=== PATIENT | male | born 1970 | race African-American/Black ===

== ENCOUNTER 2016-06-30 10:46 | Emergency (ER) | payer SELFPAY ==
[~2016-06-30 10:46] MED LIST: AMOX500C PO; HYDR-2678 PO; HYDR15SO4 PO
[2016-06-30 11:32] VITALS: BP 121/69
[2016-06-30] MEDS ORDERED: DIPHTH,PERTUSS(ACELL),TET TOX 0.5 ML DISP.SYRIN. VAX IM ONE (11:45)
[2016-06-30] MEDS ORDERED: HYDROCODONE/APAP 5/325MG TABLET. PO ONE (11:45)
--- NOTE | 2016-06-30 12:18 | RAD ---
Three-view study of the right hand Indications: Laceration injury 3 days ago. Persistent pain. Findings: No acute fracture or dislocation or osteolytic process is seen. Small loose body or accessory ossicle is seen just medial to the fifth metacarpal phalangeal joint. IMPRESSION: No acute fracture.
[2016-06-30] MEDS ORDERED: TRAM-29 PO (12:43)
--- NOTE | 2016-06-30 12:44 | PHYS DOC ---
Past Medical History Past Medical History: Asthma Past Surgical History: No Surgical History Alcohol Use: Occasionally Drug Use: None Adult General Chief Complaint Chief Complaint: HAND PROBLEM HPI HPI Patient is a 45 year old male who presents with mild right hand pain specifically fourth and fifth knuckles after a 17 inch old school TV fell on his right hand 3 days ago. Review of Systems Review of Systems Constitutional: Denies fever or chills [] Musculoskeletal: Right hand pain Integument: Denies rash or skin lesions [] Neurologic: Denies headache, focal weakness or sensory changes [] Endocrine: Denies polyuria or polydipsia [] Current Medications Current Medications Current Medications Medications (Trade) Dose Ordered Sig/Cyndi Start Time Stop Time Status Last Admin Dose Admin Acetaminophen/ Hydrocodone Bitart (Lortab 5/325) 2 tab 1X ONCE 06/30/16 11:45 06/30/16 11:46 DC 06/30/16 12:26 2 TAB Diphtheria/ Tetanus/Acell Pertussis (Boostrix) 0.5 ml ONCE ONCE 06/30/16 11:45 06/30/16 11:46 DC 06/30/16 12:27 0.5 ML Allergies Allergies Allergies Coded Allergies Type Severity Reaction Last Updated Verified No Known Drug Allergies 01/24/16 No Physical Exam Physical Exam Constitutional: Well developed, well nourished, no acute distress, non-toxic appearance. [] Skin: Warm, dry, no erythema, no rash. [] Back: No tenderness, no CVA tenderness. [] Extremities: Right hand with bruising on the fourth knuckle. Tenderness on palpation of the right hand fourth and fifth to lower cause. Limited range of motion to the right hand ring finger and pinky finger. Full range of motion to the rest of the fingers. Adequate ulna medial and radial sensation to the right hand. +2 right radial pulse. Cap refill less than 2 seconds the right upper extremity. Sensation intact to the right upper extremity. Neurologic: Alert and oriented X 3, normal motor function, normal sensory function, no focal deficits noted. [] Psychologic: Affect normal, judgement normal, mood normal. [] Current Patient Data Vital Signs Vital Signs Date Time Temp Pulse Resp B/P Pulse Ox O2 Delivery O2 Flow Rate FiO2 06/30/16 12:26 20 06/30/16 11:32 97.8 62 97 Room Air 97.8 EKG EKG [] Radiology/Procedures Radiology/Procedures [] Course & Med Decision Making Course & Med Decision Making Pertinent Labs and Imaging studies reviewed. (See chart for details) Patient is in the ED with right hand pain after a TV fell on his right hand 3 days ago. Right hand x-rays interpreted by radiologist are negative for any acute findings. Patient was given tetanus in the ED. Devon wrap was applied to the right thumb by the audio visual technician, neurovascular exam done by me post-Devon wrap application is normal. Ice elevation encouraged. Prescription for Ultram given to him for pain. Follow-up with PCP orthopedic doctor in a week if pain continues. Dragon Disclaimer Dragon Disclaimer This electronic medical record was generated, in whole or in part, using a voice recognition dictation system. Departure Departure Impression: Primary Impression: Contusion of hand, right Additional Impression: Bruising Disposition: 01 HOME, SELF-CARE Condition: STABLE Referrals: NO PCP (PCP) LANETTE YEAGER MD see her in one week if pain continues Patient Instructions: Contusion Additional Instructions: You have right hand contusion. Please keep it iced and elevated. Take pain medicines as needed. Follow up with your doctor or the provided doctor in one week Scripts Tramadol Hcl (Ultram)50 Mg Tablet1 Tab PO Q6HRS #30 TAB Prov:ALFONSO AUSTIN APRN 06/30/16 Problem Qualifiers ALFONSO AUSTIN APRN Jun 30, 2016 12:44
== END 2016-06-30 12:53 | disposition home or self-care (01) ==
LOC: ER 10:46
DX: S60.221A Contusion of right hand, initial encounter (principal); J45.909 Unspecified asthma, uncomplicated; W20.8XXA Other cause of strike by thrown, projected or falling object, initial encounter; Y93.89 Activity, other specified; Y92.89 Other specified places as the place of occurrence of the external cause; Y99.8 Other external cause status
CPT/HCPCS: 73130; 90471; 90715; 99284-25

== ENCOUNTER 2016-09-03 12:35 | Emergency (ER) | payer SELFPAY ==
[~2016-09-03] VITALS: Ht 188 cm; Wt 70.3 kg
[~2016-09-03 12:35] MED LIST changes: +TRAM-29 PO
--- NOTE | 2016-09-03 13:40 | PHYS DOC ---
Past Medical History Past Medical History: Asthma Past Surgical History: No Surgical History Alcohol Use: Occasionally Drug Use: None Adult General Chief Complaint Chief Complaint: ACCIDENTAL INGESTION HPI HPI Patient is a 45 year old male who presents with complaint of exposure to ethylene glycol approximately 30-45 minutes prior to arrival. 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 Patient states that the radiator hose came loose and splashed radiator fluid in his face. Patient states that it got into his nose and mouth. Patient estimates the amount that got into the back of his throat to be approximately a tablespoon. Patient states that he coughed most of this up as it entered his throat. Patient confirm that the radiator fluid was a 50% ethylene glycol solution. Patient states that he has had mild nausea but has not had any vomiting and does not feel intoxicated. Patient states that he does feel mildly dizzy. The patient called poison control and was directed to come to the emergency department for evaluation. Patient denies any significant past medical history. Patient denies any abdominal pain, shortness of breath, or vomiting currently. Review of Systems Review of Systems Constitutional: Lightheadedness, Denies fever or chills [] Eyes: Denies change in visual acuity, redness, or eye pain [] HENT: Denies nasal congestion or sore throat [] Respiratory: Denies cough or shortness of breath [] Cardiovascular: Denies chest pain or edema [] GI: Nausea, denies abdominal pain, vomiting, bloody stools or diarrhea [] : Denies dysuria or hematuria [] Musculoskeletal: Denies back pain or joint pain [] Integument: Denies rash or skin lesions [] Neurologic: Denies headache, focal weakness or sensory changes [] Current Medications Current Medications Current Medications Medications (Trade) Dose Ordered Sig/Cyndi Start Time Stop Time Status Last Admin Dose Admin Ondansetron HCl (Zofran Odt) 4 mg 1X ONCE 09/03/16 13:45 09/03/16 13:46 DC 09/03/16 13:51 4 MG Allergies Allergies Allergies Coded Allergies Type Severity Reaction Last Updated Verified No Known Drug Allergies 01/24/16 No Physical Exam Physical Exam Constitutional: Well developed, well nourished, no acute distress, non-toxic appearance. [] HENT: Normocephalic, atraumatic, bilateral external ears normal, oropharynx moist, no oral exudates, nose normal. [] Eyes: PERRLA, EOMI, conjunctiva normal, no discharge. [] Neck: Normal range of motion, no tenderness, supple, no stridor. [] Cardiovascular:Heart rate regular rhythm, no murmur [] Lungs & Thorax: Bilateral breath sounds clear to auscultation [] Abdomen: Bowel sounds normal, soft, no tenderness, no masses, no pulsatile masses. [] Skin: Warm, dry, no erythema, no rash. [] Back: No tenderness, no CVA tenderness. [] Extremities: No tenderness, no cyanosis, no clubbing, ROM intact, no edema. [] Neurologic: Alert and oriented X 3, normal motor function, normal sensory function, no focal deficits noted. [] Psychologic: Affect normal, judgement normal, mood normal. [] Current Patient Data Vital Signs Vital Signs Date Time Temp Pulse Resp B/P Pulse Ox O2 Delivery O2 Flow Rate FiO2 09/03/16 12:42 98.2 74 18 124/70 98 Room Air 98.2 Lab Values Laboratory Tests Test 09/03/16 13:40 Sodium Level 143mmol/L (136-145) Potassium Level 4.9mmol/L (3.5-5.1) Chloride Level 107mmol/L (98-107) Carbon Dioxide Level 29mmol/L (21-32) Anion Gap 7 (6-14) Blood Urea Nitrogen 17mg/dL (8-26) Creatinine 1.0mg/dL (0.7-1.3) Estimated GFR (Cockcroft-Gault) 96.9 BUN/Creatinine Ratio 17 (6-20) Glucose Level 96mg/dL (70-99) Serum Osmolality 289mOsm/Kg (279-304) Calcium Level 9.3mg/dL (8.5-10.1) Magnesium Level 2.0mg/dL (1.8-2.4) Total Bilirubin 0.5mg/dL (0.2-1.0) Aspartate Amino Transferase (AST) 31U/L (15-37) Alanine Aminotransferase (ALT) 33U/L (16-63) Alkaline Phosphatase 36U/L (46-116) L Total Protein 6.4g/dL (6.4-8.2) Albumin 3.4g/dL (3.4-5.0) Albumin/Globulin Ratio 1.1 (1.0-1.7) Laboratory Tests 09/03/16 13:40 EKG EKG Not performed [] Radiology/Procedures Radiology/Procedures Not performed [] Course & Med Decision Making Course & Med Decision Making Pertinent Labs and Imaging studies reviewed. (See chart for details) After interviewing the patient, it is determined that the patient's actual ingestion of ethylene glycol is minimal. I spoke with Yari of poison control who consult with the change management lead. After discussing all points of the case, Dr. Cifuentes, change management lead, stated that the patient would not need any further lab testing or observation in the emergency department. The patient's metabolic panel was unremarkable. The patient was given Zofran to help with symptoms. Advised that the patient go home and continue with hydration and normal meal intake. Advised return emergency department for any worsening symptoms. Patient voiced understanding and in agreement with treatment plan. [] Dragon Disclaimer Dragon Disclaimer This electronic medical record was generated, in whole or in part, using a voice recognition dictation system. Departure Departure Impression: Primary Impression: Accidental ingestion of substance Disposition: 01 HOME, SELF-CARE Condition: GOOD Referrals: NO PCP (PCP) Patient Instructions: Nontoxic Ingestion Additional Instructions: Follow-up with your primary doctor in 1 week as needed. Return to the emergency department for any worsening symptoms. Problem Qualifiers Primary Impression: Accidental ingestion of substance Encounter type: initial encounter Injury intent: accidental or unintentional Qualified Code: T65.91XA - Toxic effect of unspecified substance , accidental (unintentional), initial encounter RADHA XIONG MD Sep 03, 2016 13:40
[2016-09-03] MEDS ORDERED: ONDANSETRON ODT 4 MG TAB.RAPDIS PO ONE (13:45)
[2016-09-03 14:04] LABS: CALCIUM 9.3 mg/dL (8.5-10.1); GFR 96.9; POTASSIUM 4.9 mmol/L (3.5-5.1)
[2016-09-03 14:08] LABS: ALBUMIN 3.4 g/dL (3.4-5.0); ALBUMIN/GLOBULIN RATIO 1.1 (1.0-1.7); TOTAL BILIRUBIN 0.5 mg/dL (0.2-1.0); TOTAL PROTEIN 6.4 g/dL (6.4-8.2)
[2016-09-03 15:02] VITALS: BP 118/72
== END 2016-09-03 15:01 | disposition home or self-care (01) ==
LOC: ER 12:35
DX: T52.3X1A Toxic effect of glycols, accidental (unintentional), initial encounter (principal); J45.909 Unspecified asthma, uncomplicated; Y92.89 Other specified places as the place of occurrence of the external cause
CPT/HCPCS: 36415; 80053; 83735; 83930; 99284; Q0162

== ENCOUNTER 2017-05-30 20:03 | Emergency (ER) | payer SELFPAY ==
[~2017-05-30] VITALS: Ht 188 cm; Wt 70.3 kg
[~2017-05-30 20:03] MED LIST changes: -TRAM-29 PO; +TRAM-48 PO
[2017-05-30] MEDS: IV NORMAL SALINE 1000ML BAG 1,000 ML IV SCH (20:44)
[2017-05-30] MEDS: KETOROLAC 30 MG/ML INJ. IV ONE (20:44)
[2017-05-30] MEDS: ONDANSETRON PF 4 MG/2 ML VIAL. IV ONE (20:45)
[2017-05-30 20:46] LABS: BASO % 1 % (0-3); EOS % 0 % (0-3); HEMATOCRIT 45.3 % (39.0-53.0); HEMOGLOBIN 15.1 g/dL (13.0-17.5); LYMPH % 26 % (24-48); MEAN CORPUSCULAR HEMOGLOBIN 31 pg (25-35); MEAN CORPUSCULAR HGB CONC 33 g/dL (31-37); MEAN CORPUSCULAR VOLUME 93 fL (79-100); MONO % 10 % (0-9); NEUT % 63 % (31-73); PLATELET COUNT 283 x10^3/uL (140-400); RED BLOOD COUNT 4.88 x10^6/uL (4.30-5.70); RED CELL DISTRIBUTION WIDTH 14.8 % (11.5-14.5); WHITE BLOOD COUNT 7.7 x10^3/uL (4.0-11.0)
--- NOTE | 2017-05-30 20:47 | ED.ADGEN ---
Past Medical History Past Medical History: Asthma Past Surgical History: No Surgical History Alcohol Use: None Drug Use: None Adult General Chief Complaint Chief Complaint: ABDOMINAL PAIN HPI HPI Patient is a 46 year old man, history of asthma, who presents emergency department with a complaint of nausea, vomiting, diarrhea and abdominal pain that began around 3:00 in the morning. Patient states that he last ate dinner without issue, and then woke up early in the morning with multiple episodes of nausea, vomiting, and loose brown stool. Denies any blood or bile in his emesis , no blood in stool. He states that he is experiencing abdominal cramping in the epigastric region, states he is feeling nauseous currently, and has had 3 episodes of emesis over the past several hours, with multiple sodas of loose stool. Patient is not taking any medications prior to coming to the ED, without taking any medications regular basis. He denies any weakness, numbness or tingling, any swelling of the extremities, any rashes. Patient states he works at [employer] and was sent home from work today due to illness. Review of Systems Review of Systems Constitutional: Denies fever or chills. [] Eyes: Denies change in visual acuity. [] HENT: Denies nasal congestion or sore throat. [] Respiratory: Denies cough or shortness of breath. [] Cardiovascular: Denies chest pain or edema. [] GI: Complaining of epigastric abdominal cramping, nausea, vomiting, and diarrhea , no bloody stools or bloody emesis. : Denies dysuria. [] Musculoskeletal: Denies back pain or joint pain. [] Integument: Denies rash. [] Neurologic: Denies headache, focal weakness or sensory changes. [] Endocrine: Denies polyuria or polydipsia. [] Lymphatic: Denies swollen glands. [] Psychiatric: Denies depression or anxiety. [] Current Medications Current Medications Current Medications Medications (Trade) Dose Ordered Sig/Cyndi Start Time Stop Time Status Last Admin Dose Admin Dicyclomine HCl (Bentyl) 10 mg 1X ONCE 05/30/17 22:00 05/30/17 22:01 Ketorolac Tromethamine (Toradol) 10 mg 1X ONCE 05/30/17 21:00 05/30/17 21:01 DC 05/30/17 20:44 10 MG Ondansetron HCl (Zofran Odt) 4 mg 1X ONCE 05/30/17 22:00 05/30/17 22:01 Ondansetron HCl (Zofran) 4 mg 1X ONCE 05/30/17 21:00 05/30/17 21:01 DC 05/30/17 20:45 4 MG Sodium Chloride 1,000 ml @ 1,000 mls/hr Q1H 05/30/17 20:35 05/30/17 21:34 DC 05/30/17 20:44 1,000 MLS/HR Allergies Allergies Allergies Coded Allergies Type Severity Reaction Last Updated Verified No Known Drug Allergies 01/24/16 No Physical Exam Physical Exam Constitutional: Well developed, well nourished, no acute distress, non-toxic appearance. [] HENT: Normocephalic, atraumatic, bilateral external ears normal, oropharynx moist, no oral exudates, nose normal. []Mucous membranes appear moist. Eyes: PERRLA, EOMI, conjunctiva normal, no discharge. [] Neck: Normal range of motion, no tenderness, supple, no stridor. [] Cardiovascular:Heart rate regular rhythm, no murmur, S1, S2, no rubs or gallops. [] Lungs & Thorax: Bilateral breath sounds clear to auscultation, no wheezing, rhonchi, rales. No chest wall crepitus or tenderness. [] Abdomen: Bowel sounds normal, soft, mild tenderness to palpation in the epigastric region, no rebound, rigidity, no guarding, no masses, no pulsatile masses. [] Skin: Warm, dry, no erythema, no rash. [] Back: No tenderness, no CVA tenderness. [] Extremities: No tenderness, no cyanosis, no clubbing, ROM intact, no edema. Negative Homans sign. [] Neurologic: Alert and oriented X 3, normal motor function, normal sensory function, no focal deficits noted. [] Psychologic: Affect normal, judgement normal, mood normal. [] Current Patient Data Vital Signs Vital Signs Date Time Temp Pulse Resp B/P (MAP) Pulse Ox O2 Delivery O2 Flow Rate FiO2 05/30/17 21:00 54 30 129/74 (92) 100 Room Air 05/30/17 20:05 98.5 98.5 Lab Values Laboratory Tests Test 05/30/17 20:15 05/30/17 21:20 White Blood Count 7.7 x10^3/uL (4.0-11.0) Red Blood Count 4.88 x10^6/uL (4.30-5.70) Hemoglobin 15.1 g/dL (13.0-17.5) Hematocrit 45.3 % (39.0-53.0) Mean Corpuscular Volume 93 fL (79-100) Mean Corpuscular Hemoglobin 31 pg (25-35) Mean Corpuscular Hemoglobin Concent 33 g/dL (31-37) Red Cell Distribution Width 14.8 % (11.5-14.5) H Platelet Count 283 x10^3/uL (140-400) Neutrophils (%) (Auto) 63 % (31-73) Lymphocytes (%) (Auto) 26 % (24-48) Monocytes (%) (Auto) 10 % (0-9) H Eosinophils (%) (Auto) 0 % (0-3) Basophils (%) (Auto) 1 % (0-3) Neutrophils # (Auto) 4.8 x10^3uL (1.8-7.7) Lymphocytes # (Auto) 2.0 x10^3/uL (1.0-4.8) Monocytes # (Auto) 0.8 x10^3/uL (0.0-1.1) Eosinophils # (Auto) 0.0 x10^3/uL (0.0-0.7) Basophils # (Auto) 0.0 x10^3/uL (0.0-0.2) Sodium Level 140 mmol/L (136-145) Potassium Level 4.3 mmol/L (3.5-5.1) Chloride Level 101 mmol/L (98-107) Carbon Dioxide Level 30 mmol/L (21-32) Anion Gap 9 (6-14) Blood Urea Nitrogen 14 mg/dL (8-26) Creatinine 1.1 mg/dL (0.7-1.3) Estimated GFR (Cockcroft-Gault) 86.4 BUN/Creatinine Ratio 13 (6-20) Glucose Level 80 mg/dL (70-99) Calcium Level 9.1 mg/dL (8.5-10.1) Total Bilirubin 0.7 mg/dL (0.2-1.0) Aspartate Amino Transferase (AST) 39 U/L (15-37) H Alanine Aminotransferase (ALT) 41 U/L (16-63) Alkaline Phosphatase 42 U/L (46-116) L Total Protein 6.8 g/dL (6.4-8.2) Albumin 3.7 g/dL (3.4-5.0) Albumin/Globulin Ratio 1.2 (1.0-1.7) Lipase 115 U/L (73-393) Urine Collection Type Void Urine Color Yellow Urine Clarity Clear Urine pH 6.5 Urine Specific [place] 1.025 Urine Protein Negative mg/dL (NEG-TRACE) Urine Glucose (UA) Negative mg/dL (NEG) Urine Ketones (Stick) Trace mg/dL (NEG) Urine Blood Negative (NEG) Urine Nitrite Negative (NEG) Urine Bilirubin Negative (NEG) Urine Urobilinogen Dipstick 0.2 mg/dL (0.2 mg/dL) Urine Leukocyte Esterase Negative (NEG) Urine RBC Rare /HPF (0-2) Urine WBC Occ /HPF (0-4) Urine Squamous Epithelial Cells Occ /LPF Urine Bacteria 0 /HPF (0-FEW) Urine Mucus Marked /LPF Urine Sperm Present /HPF Laboratory Tests 05/30/17 20:15 Laboratory Tests 05/30/17 20:15 EKG EKG ECG: Rhythm strip: Heart rate 61 beats/minute, sinus rhythm, no ectopy. As interpreted by me. Radiology/Procedures Radiology/Procedures Not indicated.[] Course & Med Decision Making Course & Med Decision Making Pertinent Labs and Imaging studies reviewed. (See chart for details) Patient with a soft abdomen, with minimal tenderness in epigastric region, reports of nausea, vomiting, diarrhea, vital signs are within normal limits. 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 At this time, no indications for imaging based on patient's examination and findings, he is agreeable receiving IV fluids , basic laboratory studies, antiemetics and pain medication which were all. On reevaluation, patient states he is feeling much better hasn't no further emesis or diarrhea in the ED. Laboratory studies not reveal any concerning findings aside from trace ketones in the urine, electrolytes and renal function are within normal limits, no evidence of infection or other concerning findings identified. Patient is tolerating sips of fluids in the ED. Discussed with patient use of Bentyl, Zofran, clear liquid diet to be advanced as tolerated, we also discussed concerning symptoms that prompt return to the ED. Patient voices agreement with this plan, states he is ready to be discharged home. We' ll provide him also with a work note for the next several days. Patient ambulating without difficulty upon exiting the emergency department with a prescription for Zofran, Bentyl, precautions, and return instructions, with his . Dragon Disclaimer Dragon Disclaimer This electronic medical record was generated, in whole or in part, using a voice recognition dictation system. Departure Impression: Primary Impression: Nausea and vomiting Additional Impression: Abdominal pain Disposition: 01 HOME, SELF-CARE Condition: IMPROVED Scripts Dicyclomine Hcl (BENTYL) 10 Mg Capsule 10 MG PO PRN QID Y for ABDOMINAL CRAMPING, #12 TAB Prov: MIKEL ROTHMAN DO 05/30/17 Ondansetron Hcl (ZOFRAN) 4 Mg Tablet 1 TAB PO PRN Q8HRS Y for NAUSEA/VOMITING, #12 TAB Prov: MIKEL ROTHMAN DO 05/30/17 Problem Qualifiers MIKEL ROTHMAN DO May 30, 2017 20:47
[2017-05-30 21:03] LABS: CALCIUM 9.1 mg/dL (8.5-10.1); CREATININE 1.1 mg/dL (0.7-1.3); GFR 86.4; POTASSIUM 4.3 mmol/L (3.5-5.1)
[2017-05-30 21:16] LABS: ALBUMIN 3.7 g/dL (3.4-5.0); ALBUMIN/GLOBULIN RATIO 1.2 (1.0-1.7); TOTAL BILIRUBIN 0.7 mg/dL (0.2-1.0); TOTAL PROTEIN 6.8 g/dL (6.4-8.2)
[2017-05-30 21:27] LABS: BILIRUBIN,URINE NEGATIVE (NEG); GLUCOSE,URINE NEGATIVE (NEG); NITRITE,URINE NEGATIVE (NEG); PH,URINE 6.5; PROTEIN,URINE NEGATIVE (NEG-TRACE); UROBILINOGEN,URINE 0.2 mg/dL (0.2 mg/dL)
[2017-05-30 21:30] VITALS: BP 138/87
[2017-05-30 21:34] LABS: BACTERIA,URINE 0 /HPF (0-FEW); RBC,URINE RARE /HPF (0-2); SPERM,URINE PRESENT /HPF; SQUAMOUS EPITHELIAL CELL,UR OCC /LPF; WBC,URINE OCC /HPF (0-4)
[2017-05-30] MEDS ORDERED: ONDA4TAB7 PO (21:49)
[2017-05-30] MEDS ORDERED: DICY10CA53 PO (21:49)
[2017-05-30] MEDS: ONDANSETRON ODT 4 MG TAB.RAPDIS. PO ONE (21:59)
[2017-05-30] MEDS: DICYCLOMINE HCL 10 MG CAPSULE PO ONE (21:59)
== END 2017-05-30 22:08 | disposition home or self-care (01) ==
LOC: ER 20:03
DX: R11.2 Nausea with vomiting, unspecified (principal); R19.7 Diarrhea, unspecified; R10.13 Epigastric pain; J45.909 Unspecified asthma, uncomplicated
CPT/HCPCS: 36415; 80053; 81001; 83690; 85025; 96361; 96374; 96375; 99284; J1885; J2405; J7030; Q0162

== ENCOUNTER 2017-10-16 14:48 | Emergency (ER) | payer SELFPAY ==
[2017-10-16] MEDS: LIDOCAINE/EPI/TETRACAINE TOPICAL GEL 3 ML. TP (16:02)
[2017-10-16] MEDS: LIDOCAINE WITH 8.4% SOD BICARB 3 ML DISP.SYRIN. INJ (17:15)
== END 2017-10-16 18:00 | disposition home or self-care (01) ==
LOC: ER 14:48
DX: S91.311A Laceration without foreign body, right foot, initial encounter (principal); J45.909 Unspecified asthma, uncomplicated; W25.XXXA Contact with sharp glass, initial encounter; Y93.89 Activity, other specified; Y99.8 Other external cause status; Y92.89 Other specified places as the place of occurrence of the external cause
CPT/HCPCS: 12001; 73630; 99284

== ENCOUNTER 2018-11-08 16:40 | Emergency (ER) | payer SELFPAY ==
[~2018-11-08] VITALS: Ht 188 cm; Wt 71.2 kg
[~2018-11-08 16:40] MED LIST changes: +CEPH-264 PO; +DICY10CA53 PO; -HYDR15SO4 PO; +HYDR15SO6 PO; +ONDA4TAB7 PO
[2018-11-08 18:07] VITALS: BP 146/79
[2018-11-08] MEDS ORDERED: diphenhydrAMINE 50 MG/ML VIAL IVP ONE (18:45)
[2018-11-08] MEDS ORDERED: PROCHLORPERAZINE 10 MG/2 ML VIAL. IV ONE (18:45)
[2018-11-08] MEDS ORDERED: TETRACAINE 0.5% OPHTH SOLUTION 4ML BOTTLE. OD ONE (18:45)
[2018-11-08] MEDS ORDERED: AMIT10TA PO (19:06)
--- NOTE | 2018-11-09 02:03 | PHYS DOC ---
Past Medical History Past Medical History: Asthma, Other Additional Past Medical Histor: MIGRAINE HEADACHE Past Surgical History: No Surgical History Alcohol Use: Occasionally Drug Use: None Adult General Chief Complaint Chief Complaint: HEADACHE HPI HPI Patient is a 48 year old male who presents with chief complaint of bloody right eye. He woke up with this this morning He has had a migraine headache since Thursday this is a typical migraine and he said it wasn't for the eye problem he would've never come to the emergency room the headache is typical he looked into bright lights while at work on Thursday and had gradual onset of dull throbbing nonradiating headache similar to prior migra kristen taking Excedrin with some relief he was worried when he woke up with the bloody I however. No blurry vision noted no blood thinners Review of Systems Review of Systems Constitutional: Denies fever or chills [] Eyes: Denies change in visual acuity, redness, or eye pain [] HENT: Denies nasal congestion or sore throat [] Respiratory: Denies cough or shortness of breath [] Cardiovascular: No additional information not addressed in HPI [] GI: Denies abdominal pain, nausea, vomiting, bloody stools or diarrhea [] : Denies dysuria or hematuria [] Musculoskeletal: Denies back pain or joint pain [] Integument: Denies rash or skin lesions [] Neurologic: Denies headache, focal weakness or sensory changes [] Endocrine: Denies polyuria or polydipsia [] All other systems were reviewed and found to be within normal limits, except as documented in this note. Current Medications Current Medications Current Medications Medications (Trade) Dose Ordered Sig/[facility] Start Time Stop Time Status Last Admin Dose Admin Diphenhydramine HCl (Benadryl) 25 mg 1X ONCE 11/08/18 18:45 11/08/18 18:46 DC 11/08/18 18:42 25 MG Prochlorperazine Edisylate (Compazine) 10 mg 1X ONCE 11/08/18 18:45 11/08/18 18:46 DC 11/08/18 18:40 10 MG Tetracaine HCl (Tetracaine) 1 drop 1X ONCE 11/08/18 18:45 11/08/18 18:46 DC 11/08/18 18:44 1 DROP Allergies Allergies Allergies Coded Allergies Type Severity Reaction Last Updated Verified No Known Drug Allergies 01/24/16 No Physical Exam Physical Exam Constitutional: Well developed, well nourished, no acute distress, non-toxic appearance. [] HENT: Normocephalic, atraumatic, bilateral external ears normal, oropharynx moist, no oral exudates, nose normal. [] Eyes: Right conjunctival subconjunctival hemorrhage noted pupils are equal and reactive to light anterior chambers quiet visual acuity 20/30 in the affected eye eye pressures 13 Neck: Normal range of motion, no tenderness, supple, no stridor. [] Cardiovascular:Heart rate regular rhythm, no murmur [] Lungs & Thorax: Bilateral breath sounds clear to auscultation [] Abdomen: Bowel sounds normal, soft, no tenderness, no masses, no pulsatile masses. [] Skin: Warm, dry, no erythema, no rash. [] Back: No tenderness, no CVA tenderness. [] Extremities: No tenderness, no cyanosis, no clubbing, ROM intact, no edema. [] Neurologic: Alert and oriented X 3, normal motor function, normal sensory functi on, no focal deficits noted. [] Psychologic: Affect normal, judgement normal, mood normal. [] Current Patient Data Vital Signs Vital Signs Date Time Temp Pulse Resp B/P (MAP) Pulse Ox O2 Delivery O2 Flow Rate FiO2 11/08/18 18:07 70 16 99 11/08/18 17:00 98.3 154/87 (109) Room Air 98.3 EKG EKG [] Radiology/Procedures Radiology/Procedures [] Course & Med Decision Making Course & Med Decision Making Pertinent Labs and Imaging studies reviewed. (See chart for details) []48-year-old male history of migraines coming in with a subconjunctival hemorrhage, appears benign I pressure visual acuity are normal patient was reassured neurologically intact no signs of any closed head injury by history there are no objective neurologic findings and this is not a thunderclap headache is typical headache for his usual migraines. He was given symptomatic treatment felt better in the emergency room he had taken amitriptyline in the past for migraine prevention that did help but he ran outside to give him a short prescription and advised primary care doctor follow-up for further management of his chronic headaches Dragon Disclaimer Dragon Disclaimer This electronic medical record was generated, in whole or in part, using a voice recognition dictation system. Departure Departure Impression: Primary Impression: Migraine Disposition: 01 HOME, SELF-CARE Condition: STABLE Patient Instructions: Migraine Headache, [id number] Scripts Amitriptyline Hcl (AMITRIPTYLINE HCL) 10 Mg Tablet 1 TAB PO QHS, #20 TAB 0 Refills Prov: ALEXANDR CHANG MD 11/08/18 ALEXANDR CHANG MD November 09, 2018 02:03
== END 2018-11-08 19:42 | disposition home or self-care (01) ==
LOC: ER 16:40
DX: G43.909 Migraine, unspecified, not intractable, without status migrainosus (principal); H11.31 Conjunctival hemorrhage, right eye; J45.909 Unspecified asthma, uncomplicated
CPT/HCPCS: 96374; 96375; 99284; J0780; J1200

== ENCOUNTER 2020-08-19 14:32 | Emergency (ER) | payer SELFPAY ==
[~2020-08-19] VITALS: Ht 188 cm; Wt 72.7 kg
[~2020-08-19 14:32] MED LIST changes: +AMIT10TA PO
[2020-08-19 14:36] VITALS: BP 123/61
--- NOTE | 2020-08-19 15:15 | PHYS DOC ---
Past Medical History Past Medical History: Asthma, Other Additional Past Medical Histor: MIGRAINE HEADACHE Past Surgical History: No Surgical History Smoking Status: Former Smoker Alcohol Use: Occasionally Drug Use: None General Adult EDM: Chief Complaint: FOOT INJURY PAIN HPI: HPI: Patient is a 49 year old male who presents with states for the last 2 weeks he has had tingling and numbness to his bilateral bottom of his feet. He states that this started right after he was helping family members move for quite a few hours. He states he was wearing shoes and socks and he was not wet. He denies skin color change, skin temperature change. He states originally the tingling and numbness was up into his calves bilaterally. He states since then he is also had some intermittent swelling of his bilateral feet. He denies any injury. He denies pain but he rates the discomfort of the sensation of 5 out of 10. He also states that he does have some calf tenderness to the right calf medially about midway. Review of Systems: Review of Systems: Constitutional: Denies fever or chills. [] Eyes: Denies change in visual acuity. [] HENT: Denies nasal congestion or sore throat. [] Respiratory: Denies cough or shortness of breath. [] Cardiovascular: Denies chest pain. + Intermittent bilateral feet edema. [] GI: Denies abdominal pain, nausea, vomiting, bloody stools or diarrhea. [] : Denies dysuria. [] Musculoskeletal: Denies back pain or joint pain. [] Integument: Denies rash. [] Neurologic: Denies headache, focal weakness. + Bilateral bottom of feet se nsory changes. [] Endocrine: Denies polyuria or polydipsia. [] Lymphatic: Denies swollen glands. [] Psychiatric: Denies depression or anxiety. [] Heart Score: Risk Factors: Risk Factors: DM, Current or recent (<one month) smoker, HTN, HLP, family history of CAD, obesity. Risk Scores: Score 0 - 3: 2.5% MACE over next 6 weeks - Discharge Home Score 4 - 6: 20.3% MACE over next 6 weeks - Admit for Clinical Observation Score 7 - 10: 72.7% MACE over next 6 weeks - Early Invasive Strategies Allergies: Allergies: Allergies Coded Allergies Type Severity Reaction Last Updated Verified No Known Drug Allergies 01/24/16 No Physical Exam: PE: Constitutional: Well developed, well nourished, no acute distress, non-toxic appearance. [] HENT: Normocephalic, atraumatic, bilateral external ears normal, oropharynx moist, no oral exudates, nose normal. [] Eyes: PERRLA, EOMI, conjunctiva normal, no discharge. [] Neck: Normal range of motion, no tenderness, supple, no stridor. [] Cardiovascular:Heart rate regular rhythm, no murmur [] Lungs & Thorax: Bilateral breath sounds clear to auscultation [] Abdomen: Bowel sounds normal, soft, no tenderness, no masses, no pulsatile masses. [] Skin: Warm, dry, no erythema, no rash. [] Back: No tenderness, no CVA tenderness. [] Extremities: No tenderness, no cyanosis, no clubbing, ROM intact, no edema. [] Neurologic: Alert and oriented X 3, normal motor function, bilateral bottom of feet numbness sensory function, no focal deficits noted. [] Psychologic: Affect normal, judgement normal, mood normal. [] Current Patient Data: Vital Signs: Vital Signs Date Time Temp Pulse Resp B/P (MAP) Pulse Ox O2 Delivery O2 Flow Rate FiO2 08/19/20 14:36 98.7 81 18 123/61 (81) 96 Room Air 98.7 EKG: EK AND READ BY DR RIVERA SINUS RHYTHM AND NO STEMI Radiology/Procedures: Radiology/Procedures: [] Impression: [facility] [address] [place] [address] IMAGING REPORT Signed PATIENT: MARIELOS GOMEZ ACCOUNT: [id number] : 1970 LOCATION: ER AGE: 49 SEX: M EXAM STATUS: REG ER ORD. PHYSICIAN: JUN VÁSQUEZ APRN REASON: BILATERAL CALF PAIN, NUMBNESS TO FEET PROCEDURE: VENOUS LOWER EXT BILATERAL INDICATION: Reason: BILATERAL CALF PAIN, NUMBNESS TO FEET / Spl. Instructions: / History: COMPARISON: None. TECHNIQUE: Grayscale, color and doppler ultrasound images were obtained of the bilateral lower extremity venous vasculature. RIGHT: Thrombus is seen within the right superficial femoral vein as well as peroneal vein. Common femoral vein and popliteal vein appear patent. LEFT: Vascular flow seen in the left common femoral vein with thrombus seen in the superficial femoral vein. The popliteal vein is patent. IMPRESSION: * Bilateral deep vein thrombosis is identified. Electronically signed by: Wilmar Escalante MD (08/19/2020 4:29 PM) [id number] DICTATED and SIGNED BY: WILMAR ESCALANTE MD DATE: 08/19/20 [id number] Course & Med Decision Making: Course & Med Decision Making Pertinent Labs and Imaging studies reviewed. (See chart for details) See HPI. No swelling to bilateral lower extremities. Bilateral pedal pulses are strong present. Skin pink warm and dry. Cap refill less than 2 seconds. No skin color discoloration or cyanosis. Patient can wiggle his toes. He is ambulatory with a steady gait. Has good and equal strong strength bilaterally. When I touch the bottom of the patient's feet he states he cannot feel me touch them. He states the [id number] are mostly in his bottom of his toes. Denies back pain, injury, ankle pain or any other joint pain. There was some tenderness to palpation in the right medial mid calf. EKG shows sinus rhythm and no STEMI. Calcium is slightly lowered but when corrected with albumin Dr. Rivera states that it is normal. Ultrasound shows: RIGHT: Thrombus is seen within the right superficial femoral vein as well as peroneal vein. Common femoral vein and popliteal vein appear patent. LEFT: Vascular flow seen in the left common femoral vein with thrombus seen in the superficial femoral vein. The popliteal vein is patent. IMPRESSION: * Bilateral deep vein thrombosis is identified. Patient is stepped did on Eliquis and he is given a free 30-day trial. Patient knows that he needs to go to primary care before he runs out of that of which he states that he goes to the [facility]. He is aware that he needs to have 3 months worth total. I also educated him that if he at all falls or hits his head or has blunt trauma to his abdomen he needs to come to the hospital immediately as he is on a blood thinner. Patient states his understanding. Patient also knows he needs to come to the ER immediately if he starts having shortness of breath, chest pain, focal weakness, headache or dizziness. [] Dragon Disclaimer: Dragon Disclaimer: This electronic medical record was generated, in whole or in part, using a voice recognition dictation system. Departure Departure Impression: Primary Impression: DVT, bilateral lower limbs Qualified Codes: I82.413 - Acute embolism and thrombosis of femoral vein, bilateral Additional Impression: Neuropathy Disposition: DC HOME SELF CARE/HOMELESS Condition: STABLE Referrals: NO PCP (PCP) Patient Instructions: Deep Vein Thrombosis, Pain, Neuropathic Additional Instructions: Start Eliquis tomorrow 08/20. Remember to follow-up with a doctor before your 30-day trial ends. Take the medication as prescribed and with food. Do not take any kind of aspirin or other blood thinners with this medication. If you begin having chest pain, shortness of air, focal weakness, headache, dizziness, vision change come to the ER. If you hit your head or have some kind of a blunt force to your abdomen come to the ER immediately to make sure you have no bleeding internally. Scripts Apixaban (ELIQUIS) 5 Mg Tablet 5 MG PO BID for 30 Days, #60 TAB Prov: JUN VÁSQUEZ APRN 08/19/20 JUN VÁSQUEZ APRN Aug 19, 2020 15:15
[2020-08-19 15:31] LABS: BASO % 1 % (0-3); EOS # 0.1 x10^3/uL (0.0-0.7); EOS % 1 % (0-3); HEMATOCRIT 41.1 % (39.0-53.0); HEMOGLOBIN 13.9 g/dL (13.0-17.5); LYMPH # 1.6 x10^3/uL (1.0-4.8); LYMPH % 20 % (24-48); MEAN CORPUSCULAR HEMOGLOBIN 32 pg (25-35); MEAN CORPUSCULAR HGB CONC 34 g/dL (31-37); MEAN CORPUSCULAR VOLUME 93 fL (79-100); MONO # 0.7 x10^3/uL (0.0-1.1); MONO % 9 % (0-9); NEUT # 5.5 x10^3/uL (1.8-7.7); NEUT % 69 % (31-73); PLATELET COUNT 239 x10^3/uL (140-400); RED BLOOD COUNT 4.42 x10^6/uL (4.30-5.70); RED CELL DISTRIBUTION WIDTH 14.4 % (11.5-14.5); WHITE BLOOD COUNT 7.9 x10^3/uL (4.0-11.0)
[2020-08-19 15:40] LABS: CALCIUM 8.3 mg/dL (8.5-10.1); GFR 95.3; POTASSIUM 4.1 mmol/L (3.5-5.1)
[2020-08-19 15:46] LABS: ALBUMIN 2.9 g/dL (3.4-5.0); TOTAL BILIRUBIN 0.4 mg/dL (0.2-1.0); TOTAL PROTEIN 5.7 g/dL (6.4-8.2)
--- NOTE | 2020-08-19 16:31 | RAD ---
INDICATION: Reason: BILATERAL CALF PAIN, NUMBNESS TO FEET / Spl. Instructions: / History: COMPARISON: None. TECHNIQUE: Grayscale, color and doppler ultrasound images were obtained of the bilateral lower extrem ity venous vasculature. RIGHT: Thrombus is seen within the right superficial femoral vein as well as peroneal vein. Common femoral v ein and popliteal vein appear patent. LEFT: Vascular flow seen in the left common femoral vein with thrombus seen in the superficial femoral vein . The popliteal vein is patent. IMPRESSION: * Bilateral deep vein thrombosis is identified. Electronically signed by: Gregorio Martin MD (08/19/2020 4:29 PM) [id number]
[2020-08-19 16:47] LABS: PROTHROMBIN TIME PATIENT 13.4 SEC (11.7-14.0)
[2020-08-19] MEDS ORDERED: ENOX80DI SQ (17:49)
[2020-08-19] MEDS ORDERED: APIX5TAB PO (17:54)
--- NOTE | 2020-08-19 19:38 | EKG ---
[facility] [address] [place] [address] Test Date: 2020-08-19 Test Time: 16:58:27 Pat Name: MARIELOS GOMEZ Department: Room: Gender: M Educational Technician: : 1970 Requested By: JUN VÁSQUEZ Order Number: [id number] Reading MD: Measurements Intervals [place] Rate: 76 P: 90 [place]: 146 QRS: 56 QRSD: 78 T: 61 QT: 408 QTc: 464 Interpretive Statements SINUS RHYTHM ST & T ABNORMALITY, CONSIDER RECENT INFERIOR MYOCARDIAL OR PERICARDIAL DAMAGE ABNORMAL ECG RI6.02 No previous ECG available for comparison
== END 2020-08-19 18:10 | disposition home or self-care (01) ==
LOC: ER 14:32
DX: I82.413 Acute embolism and thrombosis of femoral vein, bilateral (principal); G62.9 Polyneuropathy, unspecified; R20.0 Anesthesia of skin; J45.909 Unspecified asthma, uncomplicated; G43.909 Migraine, unspecified, not intractable, without status migrainosus; Z87.891 Personal history of nicotine dependence
CPT/HCPCS: 36415; 80053; 82310; 83735; 84443; 85025; 85610; 93005; 93970; 96372; 99285; J1650

== ENCOUNTER 2021-05-20 15:51 | Emergency (ER) | payer SELFPAY ==
[~2021-05-20] VITALS: Ht 180.3 cm; Wt 85.0 kg
[~2021-05-20 15:51] MED LIST changes: +APIX5TAB PO; +ENOX80DI SQ
--- NOTE | 2021-05-20 16:14 | PHYS DOC ---
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 Patient states he woke up in the morning and he had the headache denies any thunder clap headache onset. Patient states this is the worst headache in his life. He is complaining of nausea with no vomiting. Denies any fever, denies any injuries. Denies anything right now relieving the pain but states the lights exacerbate the pain. He states he has had similar headaches before but cannot remember anything that relieved it. (ALFONSO AUSTIN PROVIDER ENGAGEMENT EXECUTIVE) Review of Systems: Review of Systems: Constitutional: Denies fever or chills. [] Eyes: Denies change in visual acuity. [] HENT: Denies nasal congestion or sore throat. [] Respiratory: Denies cough or shortness of breath. [] Cardiovascular: Denies chest pain or edema. [] GI: Reports nausea. Denies abdominal pain, vomiting, bloody stools or diarrhea. [] : Denies dysuria. [] Musculoskeletal: Denies back pain or joint pain. [] Integument: Denies rash. [] Neurologic: Reports headache, denies focal weakness or sensory changes. [] Psychiatric: Denies depression or anxiety. [] (ALFONSO AUSTIN Barbie PROVIDER ENGAGEMENT EXECUTIVE) Heart Score: C/O Chest Pain: N/A Risk Factors: Risk Factors: DM, Current or recent (<one month) smoker, HTN, HLP, family history of CAD, obesity. Risk Scores: Score 0 - 3: 2.5% MACE over next 6 weeks - Discharge Home Score 4 - 6: 20.3% MACE over next 6 weeks - Admit for Clinical Observation Score 7 - 10: 72.7% MACE over next 6 weeks - Early Invasive Strategies (ALFONSO AUSTIN Barbie PROVIDER ENGAGEMENT EXECUTIVE) Current Medications: Current Medications Medications (Trade) Dose Ordered Sig/Cyndi Start Time Stop Time Status Last Admin Dose Admin Dexamethasone Sodium Phosphate (Decadron) 10 mg 1X ONCE 05/20/21 16:15 05/20/21 16:16 Diphenhydramine HCl (Benadryl) 25 mg 1X ONCE 05/20/21 16:15 05/20/21 16:16 Prochlorperazine Edisylate (Compazine) 10 mg 1X ONCE 05/20/21 16:15 05/20/21 16:16 Sodium Chloride 1,000 ml @ 1,000 mls/hr 1X ONCE 05/20/21 16:15 05/20/21 17:14 (ALFONSO AUSTIN PROVIDER ENGAGEMENT EXECUTIVE) Allergies: Allergies: Allergies Coded Allergies Type Severity Reaction Last Updated Verified No Known Drug Allergies 05/20/21 No (ALFONSO AUSTIN PROVIDER ENGAGEMENT EXECUTIVE) Physical Exam: PE: Constitutional: Well developed, well nourished, no acute distress, non-toxic appearance. [] HENT: Normocephalic, atraumatic, bilateral external ears normal, oropharynx moist, no oral exudates, nose normal. [] Eyes: PERRLA, EOMI, conjunctiva normal, no discharge. [] Neck: Normal range of motion, no tenderness, supple, no stridor. [] Cardiovascular:Heart rate regular rhythm, no murmur [] Lungs & Thorax: Bilateral breath sounds clear to auscultation [] Abdomen: Bowel sounds normal, soft, no tenderness, no masses, no pulsatile masses. [] Skin: Warm, dry, no erythema, no rash. [] Back: No tenderness, no CVA tenderness. [] Extremities: No tenderness, no cyanosis, no clubbing, ROM intact, no edema. [] Neurologic: Alert and oriented X 3, normal motor function, normal sensory function, no focal deficits noted. Cranial nerves II through XII intact Psychologic: Affect normal, judgement normal, mood normal. [] (ALFONSO AUSTIN PROVIDER ENGAGEMENT EXECUTIVE) Current Patient Data: Vital Signs: Vital Signs Date Time Temp Pulse Resp B/P (MAP) Pulse Ox O2 Delivery O2 Flow Rate FiO2 05/20/21 15:59 98.4 88 15 150/80 (103) 100 Room Air 98.4 (ALFONSO AUSTIN PROVIDER ENGAGEMENT EXECUTIVE) EKG: EKG: [] (ALFONSO AUSTIN PROVIDER ENGAGEMENT EXECUTIVE) Radiology/Procedures: Radiology/Procedures: []PROCEDURE: CT HEAD WO CONTRAST EXAMINATION: CT HEAD/BRAIN WO CLINICAL HISTORY: Headache since yesterday TECHNIQUE: Serial axial images without IV contrast were obtained from the vertex to the foramen magnum. CT Dose Reduction Employed: One or more of the following individualized dose reduction techniques were utilized for this examination: 1. Automated exposure control 2. Adjustment of the mA and/or kV according to patient size 3. Use of iterative reconstruction technique. COMPARISON: None FINDINGS: Acute Change: No evidence of an acute infarct or other acute parenchymal process. Hemorrhage: No evidence of acute intracranial hemorrhage. Mass Lesion/Mass Effect: No evidence of intracranial mass or extraaxial fluid collection. No significant mass effect. Parenchyma: No significant volume loss. Parenchyma otherwise within normal limits for age. Ventricles: Ventricles within normal limits for age. Paranasal Sinuses and Skull Base: Visualized paranasal sinuses clear. Visualized skull base and soft tissues unremarkable motion degraded images through the skull base. IMPRESSION: No evidence of acute intracranial abnormality. Electronically signed by: Serjio Esteban DO (05/20/2021 4:37 PM) [facility] DICTATED and SIGNED BY: SERJIO ESTEBAN DO DATE: 05/20/21 [id number] 0 (ALFONSO AUSTIN ) Course & Med Decision Making: Course & Med Decision Making Pertinent Labs and Imaging studies reviewed. (See chart for details) This is a 50-year-old male patient with history of cluster headaches presenting today complaining of right-sided headache with nausea and photophobia that began yesterday. History of cluster headaches. Patient was placed on nonrebreather oxygen for 7 minutes with slight improvement of the headache but still complaining of pain Ct of the head is negative. Dr. Summers took over care and ordered MRI/MRA. Please see his documentation. Patient left AMA (ALFONSO AUSTIN ) Course & Med Decision Making Attending addendum: Patient a 50-year-old male with history of DVT currently off of Eliquis (he does not have a prescription) who presents with a thunderclap headache and describes it as the worst headache of his life. CT head shows no signs of intracranial hemorrhage. Given timing, is not sens itive to exclude diagnosis of subarachnoid hemorrhage. Also concern for cerebral venous thrombosis given his DVT history off of anticoagulation. Discussed with neurologist, Dr. Reddy, who agrees with obtaining MR imaging of the brain including MR arteriography and venography to evaluate for aneurysm and CVT. Patient will be signed out to oncoming attending with MR imaging pending. 0623 Patient was screened for MR imaging and went to the radiology suite, became diaphoretic and claustrophobic. Was not able to tolerate the MRI. I offered him medications for anxiolysis, but the patient continued to refuse MRI. Discussed the risks of missing the above diagnoses including lifelong disability, inability to communicate, severe neurologic symptoms, and potent ially . Patient states that he understands these risks and still wishes to leave AGAINST MEDICAL ADVICE. Invited him to return to complete his work-up if he changes his mind. I also asked him to absolutely return if he developed worsening neurologic symptoms. He agrees he will consider returning for complete work-up. 191 (JEANA SUMMERS MD) Dragon Disclaimer: Dragmicha Disclaimer: This electronic medical record was generated, in whole or in part, using a voice recognition dictation system. (ALFONSO AUSTIN APRN) Departure Departure Impression: Primary Impression: Headache Qualified Codes: R51.9 - Headache, unspecified Disposition: LEFT AGAINST MEDICAL ADVICE Condition: IMPROVED Referrals: NO PCP (PCP) ALFONSO AUSTIN APRN May 20, 2021 16:14 JEANA SUMMERS MD May 20, 2021 18:24
[2021-05-20] MEDS ORDERED: DEXAMETHASONE SOD PHOS 20 MG/5 ML VIAL. IV ONE (16:15)
[2021-05-20] MEDS ORDERED: IV NORMAL SALINE 1000ML BAG 1,000 ML IV ONE (16:15)
[2021-05-20] MEDS ORDERED: PROCHLORPERAZINE 10 MG/2 ML VIAL. IV ONE (16:15)
[2021-05-20] MEDS ORDERED: diphenhydrAMINE 50 MG/ML VIAL IVP ONE (16:15)
--- NOTE | 2021-05-20 16:39 | RAD ---
EXAMINATION: CT HEAD/BRAIN WO CLINICAL HISTORY: Headache since yesterday TECHNIQUE: Serial axial images without IV contrast were obtained from the vertex to the foramen magnu m. CT Dose Reduction Employed: One or more of the following individualized dose reduction techniques candelaria e utilized for this examination: 1. Automated exposure control 2. Adjustment of the mA and/or kV ac cording to patient size 3. Use of iterative reconstruction technique. COMPARISON: None FINDINGS: Acute Change: No evidence of an acute infarct or other acute parenchymal process. Hemorrhage: No evidence of acute intracranial hemorrhage. Mass Lesion/Mass Effect: No evidence of intracranial mass or extraaxial fluid collection. No signific ant mass effect. Parenchyma: No significant volume loss. Parenchyma otherwise within normal limits for age. Ventricles: Ventricles within normal limits for age. Paranasal Sinuses and Skull Base: Visualized paranasal sinuses clear. Visualized skull base and soft tissues unremarkable motion degraded images through the skull base. IMPRESSION: No evidence of acute intracranial abnormality. Electronically signed by: Serjio Dos Santos DO (05/20/2021 4:37 PM) DEANNE
[2021-05-20 16:57] LABS: CALCIUM 8.6 mg/dL (8.5-10.1); CREATININE 1.3 mg/dL (0.7-1.3); GFR 70.1; POTASSIUM 4.1 mmol/L (3.5-5.1)
[2021-05-20 17:03] LABS: ALBUMIN 3.5 g/dL (3.4-5.0); TOTAL BILIRUBIN 0.3 mg/dL (0.2-1.0); TOTAL PROTEIN 6.9 g/dL (6.4-8.2)
[2021-05-20 18:12] VITALS: BP 141/68
[2021-05-20 18:12] LABS: BASO % 1 % (0-3); EOS % 0 % (0-3); HEMATOCRIT 40.4 % (39.0-53.0); HEMOGLOBIN 13.3 g/dL (13.0-17.5); LYMPH # 0.6 x10^3/uL (1.0-4.8); LYMPH % 16 % (24-48); MEAN CORPUSCULAR HEMOGLOBIN 31 pg (25-35); MEAN CORPUSCULAR HGB CONC 33 g/dL (31-37); MEAN CORPUSCULAR VOLUME 94 fL (79-100); MONO # 0.4 x10^3/uL (0.0-1.1); MONO % 10 % (0-9); NEUT # 2.8 x10^3/uL (1.8-7.7); NEUT % 74 % (31-73); PLATELET COUNT 243 x10^3/uL (140-400); RED CELL DISTRIBUTION WIDTH 14.1 % (11.5-14.5); WHITE BLOOD COUNT 3.7 x10^3/uL (4.0-11.0)
== END 2021-05-20 19:48 | disposition left against medical advice (07) ==
LOC: ER 15:51
DX: G43.909 Migraine, unspecified, not intractable, without status migrainosus (principal); J45.909 Unspecified asthma, uncomplicated; Z87.891 Personal history of nicotine dependence
CPT/HCPCS: 36415; 70450; 80053; 85025; 96361; 96374; 96375; 99284; J0780; J1100; J1200; J7030

== ENCOUNTER 2021-09-05 20:09 | Emergency (ER) | payer BC ==
[~2021-09-05] VITALS: Ht 185.4 cm; Wt 75.0 kg
--- NOTE | 2021-09-05 20:42 | PHYS DOC ---
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 He denies abdominal pain, nausea, vomiting, diarrhea, blood in his urine, painful urination, chest pain, fever, back pain or shortness of breath, penile discharge, concern for STD. He has a history of smoking, migraine and asthma. 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 [] Eyes: Denies change in visual acuity. [] HENT: Denies nasal congestion or sore throat. [] Respiratory: Denies cough or shortness of breath. [] Cardiovascular: Denies chest pain or edema. [] GI: Denies abdominal pain, nausea, vomiting, bloody stools or diarrhea. [] : Denies dysuria. + Urinary incontinence [] Musculoskeletal: Denies back pain or joint pain. [] Integument: Denies rash. [] Neurologic: Denies headache, focal weakness or sensory changes. [] Endocrine: Denies polyuria or polydipsia. [] Lymphatic: Denies swollen glands. [] Psychiatric: Denies depression or anxiety. [] ([facility],JUN M TIME RECORDER) Heart Score: C/O [facility] Allergies: Allergies: Allergies Coded Allergies Type Severity Reaction Last Updated Verified No Known Drug Allergies 09/05/21 No ([facility] TIME RECORDER) Physical Exam: PE: Constitutional: Well developed, well nourished, no acute distress, non-toxic appearance. [] HENT: Normocephalic, atraumatic, bilateral external ears normal, oropharynx moist, no oral exudates, nose normal. [] Eyes: PERRLA, EOMI, conjunctiva normal, no discharge. [] Neck: Normal range of motion, no tenderness, supple, no stridor. [] Cardiovascular:Heart rate regular rhythm, no murmur [] Lungs & Thorax: Bilateral breath sounds clear to auscultation [] Abdomen: Bowel sounds normal, soft, no tenderness, no masses, no pulsatile masses. [] Skin: Warm, dry, no erythema, no rash. [] Back: No tenderness, no CVA tenderness. [] Extremities: No tenderness, no cyanosis, no clubbing, ROM intact, no edema. [] Neurologic: Alert and oriented X 3, normal motor function, normal sensory function, no focal deficits noted. [] Psychologic: Affect normal, judgement normal, mood normal. [] Normal physical exam (JUN VÁSQUEZ APRN) Current Patient Data: Vital Signs: Vital Signs Date Time Temp Pulse Resp B/P (MAP) Pulse Ox O2 Delivery O2 Flow Rate FiO2 09/05/21 20:09 98.1 96 16 132/84 (100) 98 Room Air 98.1 (JUN VÁSQUEZ APRN) EKG: EKG: [] (JUN VÁSQUEZ APRN) Radiology/Procedures: Radiology/Procedures: [] Impression: [facility] [address] [place] [address] IMAGING REPORT Signed PATIENT: MARIELOS GOMEZ ACCOUNT: [id number] : 1970 LOCATION: ER AGE: 50 SEX: M EXAM STATUS: REG ER ORD. PHYSICIAN: JUN VÁSQUEZ APRN REASON: frequent urination with incontinence PROCEDURE: CT ABDOMEN PELVIS WO CONTRAST INDICATION: Reason: frequent urination with incontinence / Spl. Instructions: / History: COMPARISON: None. TECHNIQUE: Axial CT images were obtained through the abdomen and pelvis without intravenous contrast. One or more of the following individualized dose reduction techniques were utilized for this examination: 1. Automated exposure control; 2. Adjustment of the mA and/or kV according to patient size; 3. Use of iterative reconstruction technique. FINDINGS: Calcification within left upper leg musculature. Vascular: No abdominal aortic aneurysm. Hepatobiliary: Liver is enlarged. Pancreas: Limited assessment secondary to lack of contrast. Spleen: Spleen unremarkable. Renal/Bladder: Calcifications within the upper pelvis bilaterally but suspect that these are vascular in nature rather than ureter stone given the lack of more proximal hydronephrosis. Urinary bladder has minimal urine within it at time of exam. Prominence of the wall. Gastrointestinal: Prominence of the wall of a portion of the colon but not very distended. The appendix is distended with intraluminal content and air are without definite surrounding inflammatory changes. No dilated loops of bowel to suggest obstruction. Degenerative changes of the hips and spine. IMPRESSION: * The urinary bladder is not very distended but there is some prominence of the wall. Could be from lack of distention or cystitis. * No hydronephrosis. * The colon is not very distended with some prominence of the wall. Most likely from lack of distention but would correlate with symptoms to ensure that there is not a pathologic causes such as mild colitis contributing. Electronically signed by: Wilmar Escalante MD (09/05/2021 9:18 PM) [id number] DICTATED and SIGNED BY: WILMAR ESCALANTE MD DATE: 09/05/211260ILP7 0 (JUN VÁSQUEZ APRN) Course & Med Decision Making: Course & Med Decision Making Pertinent Labs and Imaging studies reviewed. (See chart for details) See HPI. Alert and oriented x4. Ambulatory steady gait. Speaks in full clear sentences. Abdomen is soft and nontender. Skin pink warm and dry. Patient urinated to give a urine sample and then we post void bladder scan him and there was 6 ml left in his bladder. Patient has no lower back pain or trauma to his back. No loss of bowels. No saddle anesthesia. CT abdomen pelvis shows no acute findings. Urinalysis shows no infection. Blood work is unremarkable. Patient will need to follow-up with a urologist. [] (JUN VÁSQUEZ APRN) Dragon Disclaimer: Dragon Disclaimer: This electronic medical record was generated, in whole or in part, using a voice recognition dictation system. (JUN VÁSQUEZ APRN) Departure Departure Impression: Primary Impression: Urinary incontinence Qualified Codes: R32 - Unspecified urinary incontinence Disposition: HOME / SELF CARE / HOMELESS Condition: STABLE Referrals: NO PCP (PCP) STEFF MORLEY MD Patient Instructions: Urinary Incontinence-Brief Additional Instructions: Call make an appointment with a urologist as soon as possible. Drink plenty fluids to stay hydrated. If you been running a fever or having pain with urination you can return to the emergency room. Attending Signature Attending Signature I have reviewed the PA/CONTRACT DRIVER's note and plan of care. I was available for consultation as needed during the patient's visit in the emergency department. I agree with the clinical impression, plan, and disposition. (FIDEL BURK DO) JUN VÁSQUEZ APRN Sep 05, 2021 20:42 FIDEL BURK DO Sep 06, 2021 03:26
[2021-09-05 20:59] LABS: BASO % 1 % (0-3); EOS # 0.2 x10^3/uL (0.0-0.7); EOS % 4 % (0-3); HEMATOCRIT 38.4 % (39.0-53.0); HEMOGLOBIN 12.8 g/dL (13.0-17.5); LYMPH # 1.8 x10^3/uL (1.0-4.8); LYMPH % 42 % (24-48); MEAN CORPUSCULAR HEMOGLOBIN 32 pg (25-35); MEAN CORPUSCULAR HGB CONC 33 g/dL (31-37); MEAN CORPUSCULAR VOLUME 95 fL (79-100); MONO # 0.5 x10^3/uL (0.0-1.1); MONO % 11 % (0-9); NEUT # 1.8 x10^3/uL (1.8-7.7); NEUT % 42 % (31-73); PLATELET COUNT 277 x10^3/uL (140-400); RED BLOOD COUNT 4.03 x10^6/uL (4.30-5.70); RED CELL DISTRIBUTION WIDTH 14.8 % (11.5-14.5); WHITE BLOOD COUNT 4.3 x10^3/uL (4.0-11.0)
[2021-09-05 21:12] LABS: CALCIUM 8.7 mg/dL (8.5-10.1); CREATININE 0.9 mg/dL (0.7-1.3); GFR 107.2
[2021-09-05 21:18] LABS: ALBUMIN 3.5 g/dL (3.4-5.0); ALBUMIN/GLOBULIN RATIO 0.9 (1.0-1.7); TOTAL BILIRUBIN 0.2 mg/dL (0.2-1.0); TOTAL PROTEIN 7.2 g/dL (6.4-8.2)
[2021-09-05 21:21] LABS: BILIRUBIN,URINE NEGATIVE (NEG); CLARITY,URINE CLEAR; COLOR,URINE YELLOW; NITRITE,URINE NEGATIVE (NEG); PROTEIN,URINE NEGATIVE (NEG-TRACE); UROBILINOGEN,URINE 0.2 mg/dL (0.2 mg/dL)
--- NOTE | 2021-09-05 21:21 | RAD ---
INDICATION: Reason: frequent urination with incontinence / Spl. Instructions: / History: COMPARISON: None. TECHNIQUE: Axial CT images were obtained through the abdomen and pelvis without intravenous contrast. One or more of the following individualized dose reduction techniques were utilized for this examinat ion: 1. Automated exposure control; 2. Adjustment of the mA and/or kV according to patient size; 3 . Use of iterative reconstruction technique. FINDINGS: Calcification within left upper leg musculature. Vascular: No abdominal aortic aneurysm. Hepatobiliary: Liver is enlarged. Pancreas: Limited assessment secondary to lack of contrast. Spleen: Spleen unremarkable. Renal/Bladder: Calcifications within the upper pelvis bilaterally but suspect that these are vascular in nature rather than ureter stone given the lack of more proximal hydronephrosis. Urinary bladder h as minimal urine within it at time of exam. Prominence of the wall. Gastrointestinal: Prominence of the wall of a portion of the colon but not very distended. The append ix is distended with intraluminal content and air are without definite surrounding inflammatory dumont es. No dilated loops of bowel to suggest obstruction. Degenerative changes of the hips and spine. IMPRESSION: * The urinary bladder is not very distended but there is some prominence of the wall. Could be from lack of distention or cystitis. * No hydronephrosis. * The colon is not very distended with some prominence of the wall. Most likely from lack of distent ion but would correlate with symptoms to ensure that there is not a pathologic causes such as mild co litis contributing. Electronically signed by: Gregorio Martin MD (09/05/2021 9:18 PM) [id number]
[2021-09-05 21:25] LABS: BACTERIA,URINE 0 /HPF (0-FEW); WBC,URINE 0 /HPF (0-4)
[2021-09-05] MEDS ORDERED: IV NORMAL SALINE 1000ML BAG 1,000 ML IV ONE (21:30)
[2021-09-05 21:31] VITALS: BP 110/69
== END 2021-09-05 21:39 | disposition home or self-care (01) ==
LOC: ER 20:09
DX: R32 Unspecified urinary incontinence (principal); G43.909 Migraine, unspecified, not intractable, without status migrainosus; J45.909 Unspecified asthma, uncomplicated; F17.200 Nicotine dependence, unspecified, uncomplicated
CPT/HCPCS: 36415; 74176; 80053; 81001; 85025; 87491; 87591; 99284-25